=== PATIENT | male | born 1970 | race Caucasian/White ===

== ENCOUNTER 2016-07-31 19:04 | Emergency (ER) | payer OTHER ==
[~2016-07-31] VITALS: Ht 185.4 cm; Wt 119.3 kg
[~2016-07-31 19:04] MED LIST: ALEVE220 MG PO; ALLERGY RELIEF10 M1 PO; ALLOPURINOL100 MG PO; ANDRODERM2.5 MG/24 T; ANTIVERT25 MG PO; ASPIRIN81 M1 PO; B-12-SL1000 MCG IM; CARBAMAZEPINE200 M2 PO; CIPRODEX 0.3%-7.5 ML OT; CLARITIN10 MG PO; COZAAR25 M1 PO; DAYPRO600 M1 PO; HYDROCODONE BIT1 T11 PO; LIPITOR80 MG PO; LISINOPRIL/HCTZ1 TA3 PO; MEDROL DOSEPAK4 MG PO; METFORMIN500 MG PO; MOBIC15 MG PO; NAPROXEN220 MG PO; NKHM; PERPHENAZINE4 M1 PO; PROTONIX TR40 MG PO; ROBAXIN750 MG PO; TESTOSTERONE IM; VIAGRA50 MG PO; VITAMIN D31000 IU PO; VITAMIN D32000 IU PO; WELLBUTRIN XL150 MG PO; ZOCOR5 MG PO; [UNRECOGNIZED DRUG - REMARK] PO
[2016-07-31] MEDS ORDERED: AMARYL2 MG PO (19:14)
[2016-07-31] MEDS ORDERED: 'PARAFON FORTE500 M1 PO (19:32)
[2016-07-31] MEDS ORDERED: PREDNISONE10 MG PO (19:32)
== END 2016-07-31 19:54 | disposition home or self-care (01) ==
LOC: ED 19:04
DX: G89.29 Other chronic pain (principal); M25.552 Pain in left hip; I10 Essential (primary) hypertension; F32.9 Major depressive disorder, single episode, unspecified; M10.9 Gout, unspecified; M19.90 Unspecified osteoarthritis, unspecified site; E11.9 Type 2 diabetes mellitus without complications; Z91.041 Radiographic dye allergy status; Z91.013 Allergy to seafood; Z79.899 Other long term (current) drug therapy

== ENCOUNTER 2016-08-16 09:51 | Emergency (ER) | payer OTHER ==
[~2016-08-16] VITALS: Wt 120.2 kg
[~2016-08-16 09:51] MED LIST changes: +'PARAFON FORTE500 M1 PO; +AMARYL2 MG PO; +PREDNISONE10 MG PO
== END 2016-08-16 11:44 | disposition home or self-care (01) ==
LOC: ED 09:51
DX: G89.29 Other chronic pain (principal); M25.552 Pain in left hip; M19.90 Unspecified osteoarthritis, unspecified site; Z98.890 Other specified postprocedural states; Z90.89 Acquired absence of other organs; Z87.891 Personal history of nicotine dependence; Z79.899 Other long term (current) drug therapy; Z91.041 Radiographic dye allergy status; Z91.013 Allergy to seafood

== ENCOUNTER 2016-09-27 12:27 | Emergency (ER) | payer OTHER ==
[~2016-09-27] VITALS: Wt 117.0 kg
[2016-09-27] MEDS ORDERED: 'PARAFON FORTE500 M1 PO (12:43)
[2016-09-27] MEDS ORDERED: PREDNISONE10 MG PO (12:43)
== END 2016-09-27 13:25 | disposition home or self-care (01) ==
LOC: ED 12:27
DX: G89.29 Other chronic pain (principal); M25.552 Pain in left hip; M54.5 Low back pain; R03.0 Elevated blood-pressure reading, without diagnosis of hypertension; I10 Essential (primary) hypertension; M19.90 Unspecified osteoarthritis, unspecified site; E11.9 Type 2 diabetes mellitus without complications; M10.9 Gout, unspecified; Z91.041 Radiographic dye allergy status; Z91.013 Allergy to seafood; Z79.899 Other long term (current) drug therapy

== ENCOUNTER 2016-10-01 14:41 | Emergency (ER) | payer OTHER ==
[~2016-10-01] VITALS: Ht 185.4 cm; Wt 117.0 kg
== END 2016-10-01 15:56 | disposition home or self-care (01) ==
LOC: ED 14:41
DX: G89.4 Chronic pain syndrome (principal); M25.552 Pain in left hip; Z87.891 Personal history of nicotine dependence; Z91.013 Allergy to seafood; Z91.041 Radiographic dye allergy status; Z79.899 Other long term (current) drug therapy

== ENCOUNTER 2016-12-01 18:04 | Emergency (ER) | payer OTHER ==
[~2016-12-01] VITALS: Ht 185.4 cm; Wt 114.8 kg
[2016-12-01] MEDS ORDERED: CYCLOBENZAPRINE10 MG PO (19:21)
[2016-12-01] MEDS ORDERED: NORCO 5-325 TA1 EACH PO (19:21)
== END 2016-12-01 19:45 | disposition home or self-care (01) ==
LOC: ED 18:04
DX: G89.29 Other chronic pain (principal); M25.552 Pain in left hip; M10.9 Gout, unspecified; I10 Essential (primary) hypertension; M19.90 Unspecified osteoarthritis, unspecified site; Z91.041 Radiographic dye allergy status; Z91.013 Allergy to seafood; Z79.899 Other long term (current) drug therapy; Z87.891 Personal history of nicotine dependence

== ENCOUNTER 2017-01-04 09:23 | Emergency (ER) | payer OTHER ==
[~2017-01-04] VITALS: Ht 185.4 cm; Wt 115.7 kg
[~2017-01-04 09:23] MED LIST changes: +CYCLOBENZAPRINE10 MG PO; +NORCO 5-325 TA1 EACH PO
== END 2017-01-04 11:03 | disposition home or self-care (01) ==
LOC: ED 09:23
DX: M16.12 Unilateral primary osteoarthritis, left hip (principal); G89.29 Other chronic pain; I10 Essential (primary) hypertension; M10.9 Gout, unspecified; Z91.041 Radiographic dye allergy status; Z91.013 Allergy to seafood; Z79.899 Other long term (current) drug therapy; Z87.891 Personal history of nicotine dependence

== ENCOUNTER → 2017-01-20 | Outpatient (CLI) | payer OTHER | END | disposition home or self-care (01) | LOC: LAB 10:04 | DX: E11.9 Type 2 diabetes mellitus without complications (principal); M25.50 Pain in unspecified joint ==

== ENCOUNTER 2017-01-25 16:51 | Emergency (ER) | payer OTHER ==
[~2017-01-25] VITALS: Ht 185.4 cm; Wt 115.7 kg
== END 2017-01-25 17:57 | disposition home or self-care (01) ==
LOC: ED 16:51
DX: M25.552 Pain in left hip (principal); G89.29 Other chronic pain; I10 Essential (primary) hypertension; F32.9 Major depressive disorder, single episode, unspecified; Z91.013 Allergy to seafood; Z91.041 Radiographic dye allergy status; Z88.8 Allergy status to other drugs, medicaments and biological substances; Z79.899 Other long term (current) drug therapy; Z87.891 Personal history of nicotine dependence

== ENCOUNTER 2017-01-26 15:20 | Emergency (ER) | payer OTHER ==
[~2017-01-26] VITALS: Ht 185.4 cm; Wt 115.7 kg
== END 2017-01-26 16:52 | disposition home or self-care (01) ==
LOC: ED 15:20
DX: M25.552 Pain in left hip (principal); G89.29 Other chronic pain; F10.10 Alcohol abuse, uncomplicated; Z87.891 Personal history of nicotine dependence; Z96.653 Presence of artificial knee joint, bilateral; Z79.899 Other long term (current) drug therapy; Z91.041 Radiographic dye allergy status; Z91.013 Allergy to seafood; Z88.8 Allergy status to other drugs, medicaments and biological substances

== ENCOUNTER → 2018-12-14 | Outpatient (CLI) | payer OTHER | END | disposition home or self-care (01) | LOC: US 14:55 | DX: N50.3 Cyst of epididymis (principal); E11.9 Type 2 diabetes mellitus without complications ==

== ENCOUNTER → 2019-08-28 | Outpatient (CLI) | payer SELFPAY | END | disposition home or self-care (01) | LOC: COVID19 12:39 | DX: B34.9 Viral infection, unspecified (principal); Z20.828 Contact with and (suspected) exposure to other viral communicable diseases ==

== ENCOUNTER 2019-12-11 13:41 | Emergency (ER) | payer OTHER ==
[~2019-12-11] VITALS: Ht 185.4 cm; Wt 111.6 kg
[2019-12-11] MEDS ORDERED: ROBAXIN-750750 MG PO (14:57)
[2019-12-11] MEDS ORDERED: NORCO 5-325 TA1 EACH PO (14:57)
== END 2019-12-11 15:09 | disposition home or self-care (01) ==
LOC: ED 13:41
PROVIDERS: Physician Assistant
DX: M25.50 Pain in unspecified joint (principal); Z91.041 Radiographic dye allergy status; Z79.899 Other long term (current) drug therapy; Z79.84 Long term (current) use of oral hypoglycemic drugs

== ENCOUNTER 2023-10-01 07:58 | Emergency (ER) | payer OTHER ==
[~2023-10-01] VITALS: Ht 185.4 cm; Wt 95.3 kg
[~2023-10-01 07:58] MED LIST changes: +ROBAXIN-750750 MG PO
[2023-10-01 08:38] LABS: BASO % 0.5 % (0.0-1.0); EOS % 0.3 % (1.0-4.0); LYMPH # 2.6 10*3/uL (1.3-4.4); LYMPH % 43.5 % (27.0-41.0); MEAN CELL VOLUME 95.1 fl (80.0-94.0); MEAN CORPUSCULAR HGB 32.2 pg (27.0-31.0); MEAN CORPUSCULAR HGB CONC 33.8 g/dl (33.0-37.0); MEAN PLATELET VOLUME 9.5 fl (9.6-12.3); MONO # 0.5 10*3/uL (0.1-1.0); MONO % 8.2 % (3.0-9.0); NEUT # 2.8 10*3/uL (2.3-7.9); NEUT % 47.2 % (47.0-73.0); PLATELET COUNT AUTOMATED 239 10*3/uL (130-400); RED BLOOD COUNT 4.94 10*6/uL (4.50-5.90); RED CELL DISTRI WIDTH 11.9 % (0-14.5)
[2023-10-01 09:02] LABS: ALKALINE PHOSPHATASE 87 U/L (46-116); BUN 20 mg/dl (9-23); CHLORIDE 108 mmol/L (98-107); POTASSIUM 4.4 mmol/L (3.4-5.1); SGPT/ALT 17 U/L (5-49); TOTAL PROTEIN 7.2 gm/dL (6.0-8.0)
[2023-10-01] MEDS ORDERED: Ketorolac Tromethamine 30 MG/ML VIAL IM ONE (09:05)
[2023-10-01 09:18] LABS: BILIRUBIN Negative (Negative); BLOOD Negative (Negative); CLARITY Clear (Clear); COLOR Yellow (Yellow); GLUCOSE 3+ (Negative); KETONE 1+ (Negative); LEUKO ESTERASE Negative (Negative); NITRITE Negative (Negative); SPECIFIC GRAVITY >= 1.030 (1.001-1.030)
[2023-10-01 09:34] LABS: EPITHELIAL CELLS 0-2; RBC 0-2 rbc/hpf (0-2); WBC 0-2 wbc/hpf (0-5)
[2023-10-01] MEDS ORDERED: NAPROSYN500 MG PO (10:32)
== END 2023-10-01 10:45 | disposition home or self-care (01) ==
LOC: ED 07:58
PROVIDERS: Internal Medicine
DX: S39.012A Strain of muscle, fascia and tendon of lower back, initial encounter (principal); M10.9 Gout, unspecified; M19.90 Unspecified osteoarthritis, unspecified site; I10 Essential (primary) hypertension; E78.00 Pure hypercholesterolemia, unspecified; Z91.041 Radiographic dye allergy status; Z91.013 Allergy to seafood; Z88.8 Allergy status to other drugs, medicaments and biological substances; Z98.890 Other specified postprocedural states; X58.XXXA Exposure to other specified factors, initial encounter; Y93.89 Activity, other specified; Y92.239 Unspecified place in hospital as the place of occurrence of the external cause; Y99.0 Civilian activity done for income or pay

== ENCOUNTER 2024-02-28 17:25 | Inpatient (IN) | payer OTHER ==
[~2024-02-28] VITALS: Ht 185.4 cm; Wt 97.6 kg
[~2024-02-28 17:25] MED LIST changes: +NAPROSYN500 MG PO
[2024-02-28 17:40] VITALS: BP 100/75
[2024-02-28 19:28] LABS: BASO % 0.4 % (0.0-1.0); EOS # 0.1 10*3/uL (0.0-0.4); EOS % 0.8 % (1.0-4.0); HEMATOCRIT 49.6 % (42.0-52.0); MEAN CELL VOLUME 94.5 fl (80.0-94.0); MEAN CORPUSCULAR HGB 31.6 pg (27.0-31.0); MEAN CORPUSCULAR HGB CONC 33.5 g/dl (33.0-37.0); MEAN PLATELET VOLUME 9.7 fl (9.6-12.3); MONO # 0.6 10*3/uL (0.1-1.0); MONO % 5.9 % (3.0-9.0); NEUT # 6.7 10*3/uL (2.3-7.9); NEUT % 66.2 % (47.0-73.0); PLATELET COUNT AUTOMATED 277 10*3/uL (130-400); RED BLOOD COUNT 5.25 10*6/uL (4.50-5.90); RED CELL DISTRI WIDTH 11.9 % (0-14.5); WHITE BLOOD COUNT 10.1 10*3/uL (4.8-10.8)
[2024-02-28 19:42] LABS: BUN 13 mg/dl (9-23); CHLORIDE 104 mmol/L (98-107); POTASSIUM 4.4 mmol/L (3.4-5.1)
[2024-02-28] MEDS ORDERED: Piperacillin Sodium/Tazobact 50 ML IV ONE (20:35)
[2024-02-28] MEDS ORDERED: Vancomycin Hydrochloride 250 ML IV ONE (20:35)
[2024-02-28 21:19] VITALS: BP 100/63
[2024-02-28] MEDS ORDERED: Magnesium Hydroxide 30 ML UDC PO PRN (21:25)
[2024-02-28] MEDS ORDERED: ACETAMINOPHEN 325 MG TAB PO PRN (21:25)
[2024-02-28] MEDS ORDERED: Ondansetron Hydrochloride 4 MG/2 ML VIAL IV PRN (21:25)
[2024-02-28] MEDS ORDERED: Acetaminophen/Hydrocodone 5 MG/325 MG TABLET PO PRN (21:25)
[2024-02-28] MEDS ORDERED: MORPHINE Sulfate 2 MG/ML SYR IV PRN (21:25)
[2024-02-28] MEDS ORDERED: DEXTROSE 10 % IN WATER 250 ML IV PRN (21:25)
[2024-02-28] MEDS ORDERED: Vancomycin Hydrochloride 1,000 MG in SODIUM CHLORIDE 0.9% 250 ML IV SCH (21:35)
[2024-02-28] MEDS ORDERED: JARDIANCE10 MG PO (21:59)
[2024-02-28] MEDS ORDERED: GLIPIZIDE10 M2 PO (21:59)
[2024-02-28] MEDS ORDERED: LOPRESSOR25 MG PO (22:00)
[2024-02-28] MEDS ORDERED: PROSCAR5 M1 PO (22:00)
[2024-02-28] MEDS ORDERED: INSULIN LISPRO 1 UNIT/0.01 ML SQ SCH (22:00)
[2024-02-28] MEDS ORDERED: RISPERDAL4 M1 PO (22:01)
[2024-02-28] MEDS ORDERED: ZYRTEC-D TABLE1 EACH PO (22:01)
[2024-02-28] MEDS ORDERED: EFFEXOR XR75 M1 PO (22:03)
[2024-02-28] MEDS ORDERED: NEURONTIN800 MG PO (22:04)
[2024-02-28] MEDS ORDERED: TRAZODONE100 MG PO (22:05)
[2024-02-28] MEDS ORDERED: NEURONTIN600 MG PO (22:05)
[2024-02-28] MEDS ORDERED: Tdap Vaccine 0.5 ML SYR (Adult Vaccine) IM ONE (22:15)
[2024-02-29 02:30] VITALS: BP 119/85
[2024-02-29] MEDS ORDERED: Piperacillin Sodium/Tazobact 50 ML IV SCH (03:00)
[2024-02-29] MEDS ORDERED: VANCOMYCIN/WATER FOR INJ (PEG) 300 ML IV SCH (06:00)
[2024-02-29 06:31] LABS: BASO % 0.3 % (0.0-1.0); EOS # 0.1 10*3/uL (0.0-0.4); EOS % 1.5 % (1.0-4.0); HEMATOCRIT 44.4 % (42.0-52.0); MEAN CELL VOLUME 96.5 fl (80.0-94.0); MEAN CORPUSCULAR HGB 31.5 pg (27.0-31.0); MEAN CORPUSCULAR HGB CONC 32.7 g/dl (33.0-37.0); MEAN PLATELET VOLUME 10.2 fl (9.6-12.3); MONO # 0.7 10*3/uL (0.1-1.0); NEUT # 4.6 10*3/uL (2.3-7.9); NEUT % 49.7 % (47.0-73.0); PLATELET COUNT AUTOMATED 251 10*3/uL (130-400); RED CELL DISTRI WIDTH 12.2 % (0-14.5); WHITE BLOOD COUNT 9.3 10*3/uL (4.8-10.8)
[2024-02-29 06:37] LABS: ALKALINE PHOSPHATASE 76 U/L (46-116); BUN 22 mg/dl (9-23); CHLORIDE 103 mmol/L (98-107); CHOLESTEROL 225 mg/dL (<200); FREE T4 1.16 ng/dl (0.89-1.76); LDL CHOLESTEROL 112 mg/dL (9-159); POTASSIUM 4.3 mmol/L (3.4-5.1); SGPT/ALT 15 U/L (5-49); TOTAL PROTEIN 6.6 gm/dL (6.0-8.0); TRIGLYCERIDES 337 mg/dl (<150)
[2024-02-29 07:06] LABS: VITAMIN D, 25-HYDROXY 31.6 ng/mL (30-100)
[2024-02-29 08:00] VITALS: BP 120/70
[2024-02-29 12:00] VITALS: BP 121/82
[2024-02-29] MEDS ORDERED: GADOTERATE MEGLUMINE 10 MMOL/20 ML VIAL IV ONE (13:02)
[2024-02-29] MEDS ORDERED: LOSARTAN POTASS25 M1 PO (15:02)
[2024-02-29 16:00] VITALS: BP 135/87
[2024-02-29] MEDS ORDERED: Insulin Glargine, Recombinan 1 UNIT/0.01 ML SC SCH ×2 (18:00→20:00)
[2024-02-29 20:00] VITALS: BP 115/80
[2024-02-29] MEDS ORDERED: GABAPENTIN 600 MG TAB PO SCH (22:00)
[2024-03-01] VITALS (9 sets, daily range): BP systolic 112–163; BP diastolic 67–94
[2024-03-01 05:30] LABS: BUN 18 mg/dl (9-23); CHLORIDE 104 mmol/L (98-107)
[2024-03-01 06:22] LABS: BASO % 0.4 % (0.0-1.0); EOS % 0.6 % (1.0-4.0); HEMATOCRIT 44.9 % (42.0-52.0); MEAN CELL VOLUME 97.2 fl (80.0-94.0); MEAN CORPUSCULAR HGB 31.6 pg (27.0-31.0); MEAN CORPUSCULAR HGB CONC 32.5 g/dl (33.0-37.0); MEAN PLATELET VOLUME 10.2 fl (9.6-12.3); MONO # 0.5 10*3/uL (0.1-1.0); NEUT # 3.5 10*3/uL (2.3-7.9); NEUT % 49.6 % (47.0-73.0); PLATELET COUNT AUTOMATED 259 10*3/uL (130-400); RED BLOOD COUNT 4.62 10*6/uL (4.50-5.90); RED CELL DISTRI WIDTH 11.9 % (0-14.5); WHITE BLOOD COUNT 7.1 10*3/uL (4.8-10.8)
[2024-03-01] MEDS ORDERED: Loratadine/Pseudoephedrine S 1 TAB TAB PO SCH (10:00)
[2024-03-01] MEDS ORDERED: FINASTERIDE 5 MG TAB PO SCH (10:00)
[2024-03-01] MEDS ORDERED: Losartan Potassium 25 MG TAB PO SCH (10:00)
[2024-03-01] MEDS ORDERED: RISPERIDONE 2 MG TAB PO SCH (10:00)
[2024-03-01] MEDS ORDERED: Venlafaxine Hydrochloride 75 MG CAP PO SCH (10:00)
[2024-03-01] MEDS ORDERED: GABAPENTIN 300 MG CAP PO SCH (10:00)
[2024-03-01] MEDS ORDERED: FENOFIBRATE 145 MG TAB PO SCH (10:00)
[2024-03-01] MEDS ORDERED: SODIUM CHLORIDE 0.9% 1,000 ML IV SCH (13:35)
[2024-03-01] MEDS ORDERED: SODIUM CHLORIDE 0.9% 1,000 ML IV ONE (13:52)
[2024-03-01] MEDS ORDERED: Bupivacaine Hydrochloride/Ep2 30 ML VIAL ONE (14:05)
[2024-03-01] MEDS ORDERED: Vancomycin Hydrochloride 1,000 MG VIAL ONE (14:05)
[2024-03-01] MEDS ORDERED: BUPIVACAINE 0.5% 30 ML IV ONE (14:06)
[2024-03-01] MEDS ORDERED: fentaNYL CITRATE 100 MCG/2 ML VIAL IV ONE (15:41)
[2024-03-01] MEDS ORDERED: PROPOFOL 200 MG/20 ML VIAL IV ONE (15:41)
[2024-03-01] MEDS ORDERED: Ketamine Hydrochloride 500 MG/10 ML VIAL IV ONE (15:41)
[2024-03-01] MEDS ORDERED: Midazolam Hydrochloride 2 MG/2 ML VIAL IV ONE (15:41)
[2024-03-01] MEDS ORDERED: Ondansetron Hydrochloride 4 MG/2 ML VIAL IV ONE (15:41)
[2024-03-01] MEDS ORDERED: Dexamethasone Sodium Phospha 4 MG/ML VIAL IV ONE (15:41)
[2024-03-01] MEDS ORDERED: VANCOMYCIN/WATER FOR INJ (PEG) 350 ML IV SCH (20:00)
[2024-03-01] MEDS ORDERED: Insulin Glargine, Recombinan 1 UNIT/0.01 ML SC SCH (20:00)
[2024-03-02] VITALS: BP 114/76
[2024-03-02] MEDS ORDERED: VANC1PIG IV
[2024-03-02 06:04] LABS: BASO % 0.2 % (0.0-1.0); EOS # 0.1 10*3/uL (0.0-0.4); HEMATOCRIT 41.4 % (42.0-52.0); MEAN CELL VOLUME 95.2 fl (80.0-94.0); MEAN CORPUSCULAR HGB 32.2 pg (27.0-31.0); MEAN CORPUSCULAR HGB CONC 33.8 g/dl (33.0-37.0); MEAN PLATELET VOLUME 9.9 fl (9.6-12.3); MONO # 0.5 10*3/uL (0.1-1.0); MONO % 5.4 % (3.0-9.0); NEUT # 5.7 10*3/uL (2.3-7.9); NEUT % 62.5 % (47.0-73.0); PLATELET COUNT AUTOMATED 216 10*3/uL (130-400); RED BLOOD COUNT 4.35 10*6/uL (4.50-5.90); RED CELL DISTRI WIDTH 11.7 % (0-14.5); WHITE BLOOD COUNT 9.1 10*3/uL (4.8-10.8)
[2024-03-02 06:17] LABS: BUN 11 mg/dl (9-23); CHLORIDE 105 mmol/L (98-107); POTASSIUM 3.8 mmol/L (3.4-5.1)
[2024-03-02 08:00] VITALS: BP 116/68
[2024-03-02] MEDS ORDERED: Losartan Potassium 25 MG TAB PO SCH (10:00)
[2024-03-02] MEDS ORDERED: RIVAROXABAN 10 MG TAB PO SCH (10:00)
[2024-03-02 12:10] VITALS: BP 90/50
[2024-03-02 14:17] VITALS: BP 98/60
[2024-03-02 15:07] LABS: ACID FAST SPEC PROCESSING Tissue Grinding (.)
[2024-03-02 16:00] VITALS: BP 105/79
[2024-03-02 20:00] VITALS: BP 120/77
[2024-03-02] MEDS ORDERED: Insulin Glargine, Recombinan 1 UNIT/0.01 ML SC SCH (20:00)
[2024-03-03] VITALS: BP 122/80
[2024-03-03 06:15] LABS: BUN 11 mg/dl (9-23); CHLORIDE 101 mmol/L (98-107); POTASSIUM 3.9 mmol/L (3.4-5.1)
[2024-03-03 06:23] LABS: BASO % 0.5 % (0.0-1.0); EOS % 0.5 % (1.0-4.0); HEMATOCRIT 42.8 % (42.0-52.0); MEAN CELL VOLUME 97.7 fl (80.0-94.0); MEAN CORPUSCULAR HGB 31.7 pg (27.0-31.0); MEAN CORPUSCULAR HGB CONC 32.5 g/dl (33.0-37.0); MEAN PLATELET VOLUME 10.3 fl (9.6-12.3); MONO # 0.4 10*3/uL (0.1-1.0); MONO % 6.5 % (3.0-9.0); NEUT # 3.1 10*3/uL (2.3-7.9); PLATELET COUNT AUTOMATED 234 10*3/uL (130-400); RED BLOOD COUNT 4.38 10*6/uL (4.50-5.90); RED CELL DISTRI WIDTH 11.9 % (0-14.5); WHITE BLOOD COUNT 6.5 10*3/uL (4.8-10.8)
[2024-03-03 08:00] VITALS: BP 135/79
[2024-03-03 12:00] VITALS: BP 130/83
[2024-03-03] MEDS ORDERED: ERTAPENEM1 GM IV (19:18)
[2024-03-03 20:00] VITALS: BP 106/70
[2024-03-04 06:10] LABS: BASO % 0.5 % (0.0-1.0); EOS % 0.3 % (1.0-4.0); HEMATOCRIT 45.4 % (42.0-52.0); MEAN CELL VOLUME 96.4 fl (80.0-94.0); MEAN CORPUSCULAR HGB 31.8 pg (27.0-31.0); MEAN PLATELET VOLUME 9.9 fl (9.6-12.3); MONO # 0.5 10*3/uL (0.1-1.0); MONO % 7.5 % (3.0-9.0); NEUT # 3.2 10*3/uL (2.3-7.9); NEUT % 50.4 % (47.0-73.0); PLATELET COUNT AUTOMATED 238 10*3/uL (130-400); RED BLOOD COUNT 4.71 10*6/uL (4.50-5.90); RED CELL DISTRI WIDTH 11.8 % (0-14.5); WHITE BLOOD COUNT 6.4 10*3/uL (4.8-10.8)
[2024-03-04 06:37] LABS: BUN 12 mg/dl (9-23); CHLORIDE 99 mmol/L (98-107); POTASSIUM 4.5 mmol/L (3.4-5.1)
[2024-03-04 08:00] VITALS: BP 129/90
[2024-03-04 11:57] VITALS: BP 125/75
[2024-03-04 16:00] VITALS: BP 131/71
[2024-03-04 20:00] VITALS: BP 124/93
[2024-03-05] VITALS: BP 101/73; BP 131/75
[2024-03-05 06:22] LABS: BASO % 0.6 % (0.0-1.0); EOS # 0.1 10*3/uL (0.0-0.4); EOS % 0.9 % (1.0-4.0); HEMATOCRIT 43.8 % (42.0-52.0); MEAN CELL VOLUME 96.9 fl (80.0-94.0); MEAN CORPUSCULAR HGB 31.6 pg (27.0-31.0); MEAN CORPUSCULAR HGB CONC 32.6 g/dl (33.0-37.0); MONO # 0.5 10*3/uL (0.1-1.0); MONO % 7.9 % (3.0-9.0); NEUT # 2.9 10*3/uL (2.3-7.9); NEUT % 45.4 % (47.0-73.0); PLATELET COUNT AUTOMATED 228 10*3/uL (130-400); RED BLOOD COUNT 4.52 10*6/uL (4.50-5.90); RED CELL DISTRI WIDTH 11.9 % (0-14.5); WHITE BLOOD COUNT 6.5 10*3/uL (4.8-10.8)
[2024-03-05 06:49] LABS: BUN 12 mg/dl (9-23); CHLORIDE 98 mmol/L (98-107)
[2024-03-05 08:00] VITALS: BP 135/89
[2024-03-05 12:00] VITALS: BP 129/87
[2024-03-05 16:00] VITALS: BP 128/74
[2024-03-05 20:00] VITALS: BP 133/81
[2024-03-06] VITALS: BP 113/77
[2024-03-06 06:08] LABS: BUN 12 mg/dl (9-23); CHLORIDE 100 mmol/L (98-107); POTASSIUM 3.7 mmol/L (3.4-5.1)
[2024-03-06 06:47] LABS: BASO % 0.6 % (0.0-1.0); EOS # 0.1 10*3/uL (0.0-0.4); EOS % 0.9 % (1.0-4.0); HEMATOCRIT 45.4 % (42.0-52.0); MEAN CORPUSCULAR HGB 31.4 pg (27.0-31.0); MEAN PLATELET VOLUME 10.3 fl (9.6-12.3); MONO # 0.5 10*3/uL (0.1-1.0); MONO % 7.4 % (3.0-9.0); NEUT # 3.5 10*3/uL (2.3-7.9); NEUT % 49.8 % (47.0-73.0); PLATELET COUNT AUTOMATED 228 10*3/uL (130-400); RED BLOOD COUNT 4.78 10*6/uL (4.50-5.90); RED CELL DISTRI WIDTH 11.9 % (0-14.5)
[2024-03-06 08:00] VITALS: BP 130/85
[2024-03-06 12:00] VITALS: BP 90/50
[2024-03-06 15:12] VITALS: BP 100/56
[2024-03-06 16:00] VITALS: BP 100/56
[2024-03-06 20:00] VITALS: BP 116/85
[2024-03-07] VITALS: BP 126/85
[2024-03-07 08:00] VITALS: BP 124/80
[2024-03-07] MEDS ORDERED: Piperacillin Sodium/Tazobact 50 ML IV SCH (08:10)
[2024-03-07] MEDS ORDERED: Loratadine/Pseudoephedrine S 1 TAB TAB PO SCH (10:00)
[2024-03-07 12:00] VITALS: BP 130/96
[2024-03-07] MEDS ORDERED: Ertapenem Sodium 1 GM in SODIUM CHLORIDE 0.9% 50 ML IV ONE (13:05)
[2024-03-07] MEDS ORDERED: XARELTO10 MG PO (14:23)
[2024-03-07] MEDS ORDERED: FENOFIBRATE145 M1 PO (14:23)
[2024-03-07] MEDS ORDERED: LOSARTAN POTASS25 M1 PO (14:23)
[2024-03-07 16:00] VITALS: BP 132/88
== END 2024-03-07 20:58 | disposition home health service (06) | DRG 982 ==
LOC: ED 17:25 → 4E 21:03 → EDHOLD 21:03 → 4E 02-29 01:17 → EDHOLD 02-29 01:34 → 4E 02-29 01:40
PROVIDERS: Internal Medicine; Podiatrist; Student in an Organized Health Care Education/Training Program; ADMIT Internal Medicine; ATTEND Internal Medicine
PROC: 0LNV0ZZ Release Right Foot Tendon, Open Approach (ICD-10-PCS; principal; 2024-03-01)
PROC: 0YQ Anatomical Regions, Lower Extremities, Repair (ICD-10-PCS; 2024-03-01)
PROC: 0QBQ0ZX Excision of Right Toe Phalanx, Open Approach, Diagnostic (ICD-10-PCS; 2024-03-01)
PROC: 0HDRXZZ Extraction of Toe Nail, External Approach (ICD-10-PCS; 2024-03-01)
PROC: 02HV33Z Insertion of Infusion Device into Superior Vena Cava, Percutaneous Approach (ICD-10-PCS; 2024-03-04)
PROC: B548ZZA Ultrasonography of Superior Vena Cava, Guidance (ICD-10-PCS; 2024-03-04)
DX: E11.69 Type 2 diabetes mellitus with other specified complication (principal); D84.9 Immunodeficiency, unspecified; L03.115 Cellulitis of right lower limb; E44.1 Mild protein-calorie malnutrition; M86.8X7 Other osteomyelitis, ankle and foot; L97.518 Non-pressure chronic ulcer of other part of right foot with other specified severity; M16.9 Osteoarthritis of hip, unspecified; E11.65 Type 2 diabetes mellitus with hyperglycemia; E78.1 Pure hyperglyceridemia; I10 Essential (primary) hypertension; E11.40 Type 2 diabetes mellitus with diabetic neuropathy, unspecified; Z96.642 Presence of left artificial hip joint; E78.5 Hyperlipidemia, unspecified; M16.12 Unilateral primary osteoarthritis, left hip; M1A.9XX0 Chronic gout, unspecified, without tophus (tophi); F32.A Depression, unspecified; B95.61 Methicillin susceptible Staphylococcus aureus infection as the cause of diseases classified elsewhere; M20.41 Other hammer toe(s) (acquired), right foot; Z91.041 Radiographic dye allergy status; E11.621 Type 2 diabetes mellitus with foot ulcer; Z91.013 Allergy to seafood; Z88.8 Allergy status to other drugs, medicaments and biological substances; Z79.899 Other long term (current) drug therapy; Z87.891 Personal history of nicotine dependence; Z82.49 Family history of ischemic heart disease and other diseases of the circulatory system; Z68.28 Body mass index [BMI] 28.0-28.9, adult

== ENCOUNTER 2024-05-18 12:20 | Emergency (ER) | payer OTHER ==
[~2024-05-18 12:20] MED LIST changes: +EFFEXOR XR75 M1 PO; +ERTAPENEM1 GM IV; +FENOFIBRATE145 M1 PO; +GLIPIZIDE10 M2 PO; +JARDIANCE10 MG PO; +LOPRESSOR25 MG PO; +LOSARTAN POTASS25 M1 PO; +NEURONTIN600 MG PO; +NEURONTIN800 MG PO; +PROSCAR5 M1 PO; +RISPERDAL4 M1 PO; +TRAZODONE100 MG PO; +VANC1PIG IV; +XARELTO10 MG PO; +ZYRTEC-D TABLE1 EACH PO
[2024-05-18] MEDS ORDERED: SODIUM CHLORIDE 0.9% 1,000 ML IV ONE ×3 (12:25→13:20)
[2024-05-18 12:59] LABS: BASO % 0.4 % (0.0-1.0); EOS % 0.4 % (1.0-4.0); HEMATOCRIT 50.3 % (42.0-52.0); MEAN CORPUSCULAR HGB 31.4 pg (27.0-31.0); MEAN CORPUSCULAR HGB CONC 33.4 g/dl (33.0-37.0); MEAN PLATELET VOLUME 9.6 fl (9.6-12.3); MONO # 0.8 10*3/uL (0.1-1.0); MONO % 7.6 % (3.0-9.0); NEUT # 6.1 10*3/uL (2.3-7.9); PLATELET COUNT AUTOMATED 271 10*3/uL (130-400); RED BLOOD COUNT 5.35 10*6/uL (4.50-5.90); RED CELL DISTRI WIDTH 11.7 % (0-14.5); WHITE BLOOD COUNT 10.5 10*3/uL (4.8-10.8)
[2024-05-18 13:11] LABS: POTASSIUM 3.7 mmol/L (3.4-5.1)
== END 2024-05-18 14:59 | disposition home or self-care (01) ==
LOC: ED 12:20
PROVIDERS: Emergency Medicine
DX: R42 Dizziness and giddiness (principal); N17.9 Acute kidney failure, unspecified; I10 Essential (primary) hypertension; E11.9 Type 2 diabetes mellitus without complications; Z91.041 Radiographic dye allergy status; Z88.8 Allergy status to other drugs, medicaments and biological substances; Z91.013 Allergy to seafood; Z79.899 Other long term (current) drug therapy; Z79.84 Long term (current) use of oral hypoglycemic drugs; Z98.890 Other specified postprocedural states; Z87.891 Personal history of nicotine dependence